=== PATIENT | male | born 1985 | race Caucasian/White ===

== ENCOUNTER 2018-03-18 12:13 | Emergency (ER) | payer OTHER ==
[~2018-03-18] VITALS: Ht 180.3 cm; Wt 64.0 kg
[2018-03-18 12:19] VITALS: BP 159/109; Ht 180.3 cm; Wt 64.0 kg
== END 2018-03-18 13:17 | disposition home or self-care (01) ==
LOC: ED 12:13
DX: G56.31 Lesion of radial nerve, right upper limb (principal); M21.331 Wrist drop, right wrist; F41.9 Anxiety disorder, unspecified; Z88.5 Allergy status to narcotic agent
CPT/HCPCS: Q0092